=== PATIENT | female | born 1985 | race Hispanic/Latino ===

== ENCOUNTER 2023-06-29 05:47 | Inpatient (IN) | payer MEDICAID ==
[2023-06-26 11:58] LABS: Hematocrit 38.5 % (34.9-44.5); Hemoglobin 12.8 g/dL (12.0-15.5); Platelet Count 269 10x3/uL (150-450)
[2023-06-26 12:25] LABS: HBSAg Index 0.18 S/CO (0-0.99); Hep B Surf Ag Non-Reactive S/CO (NonReactive); Syphilis Antibody Nonreactive (Nonreactive); Syphilis Antibody Index 0.04 S/CO (<1.00 Non-Reactive)
[2023-06-29 06:19] VITALS: BMI 37.3
[2023-06-29] MEDS ORDERED: diphenhydrAMINE 50 MG/ML VIAL IVP PRN (06:51)
[2023-06-29] MEDS ORDERED: Promethazine HCl 25 MG SUPP PR PRN (06:51)
[2023-06-29] MEDS ORDERED: Ondansetron PF 4 MG/2 ML Vial IVP PRN ×2 (06:51→07:06)
[2023-06-29] MEDS ORDERED: Promethazine HCl 25 MG/ML VIAL IM PRN ×2 (06:51→07:06)
[2023-06-29] MEDS ORDERED: Ondansetron HCl/PF 4 MG/2 ML Vial IVP PRN (06:51)
[2023-06-29] MEDS ORDERED: Naloxone HCl 0.4 mg/ml Vial IV PRN (06:51)
[2023-06-29] MEDS ORDERED: Moisturizing Cream (Eucerin) 113 GM JAR TOP PRN (06:51)
[2023-06-29] MEDS ORDERED: Fentanyl 50 MCG/1 ML VIAL SLOW IVP PRN (06:51)
[2023-06-29] MEDS ORDERED: Naloxone HCl 0.4 mg/ml Vial IVP PRN ×2 (06:51)
[2023-06-29] MEDS ORDERED: Meperidine HCl/PF 25 MG/ML VIAL SLOW IVP PRN (06:51)
[2023-06-29] MEDS ORDERED: L&D-HYDROmorphone 0.5 MG/0.5 ML SYRINGE SLOW IVP PRN (06:51)
[2023-06-29] MEDS ORDERED: fentaNYL 50 mcg/mL 1 mL Vial ONE (06:56)
[2023-06-29] MEDS ORDERED: Morphine PF 10 MG/10 ML VIAL ONE (06:56)
[2023-06-29] MEDS ORDERED: Dexamethasone 4 mg/ml Vial ONE (06:58)
[2023-06-29] MEDS ORDERED: Phenylephrine 10 MG/ML VIAL ONE (06:58)
[2023-06-29] MEDS ORDERED: Ondansetron PF 4 MG/2 ML Vial ONE (06:58)
[2023-06-29] MEDS ORDERED: Ketorolac Tromethamine 30 MG/ML VIAL IVP SCH (07:00)
[2023-06-29] MEDS ORDERED: CEFAZOLIN 2 GM VIAL ONE (07:00)
[2023-06-29] MEDS ORDERED: Famotidine/PF 20 mg/2ml Vial ONE (07:00)
[2023-06-29] MEDS ORDERED: Communication Order-Pharmacy FS SCH (07:00)
[2023-06-29] MEDS ORDERED: Oxytocin 10 UNITS/ML VIAL ONE (07:04)
[2023-06-29] MEDS ORDERED: Sodium Chloride 0.9% 100 ML ONE (07:05)
[2023-06-29] MEDS ORDERED: hydrALAZINE 20 MG/ML VIAL SLOW IVP PRN ×2 (07:06→08:44)
[2023-06-29] MEDS ORDERED: Bicitra 30 ML UDCUP PO PRN (07:06)
[2023-06-29] MEDS ORDERED: Docusate 100 MG CAP PO PRN (07:06)
[2023-06-29] MEDS ORDERED: Tranexamic Acid 1,000 MG/10 ML VIAL IVP PRN (07:06)
[2023-06-29] MEDS ORDERED: Famotidine/PF 20 mg/2ml Vial SLOW IVP PRN (07:06)
[2023-06-29] MEDS ORDERED: Misoprostol 200 MCG TAB PR PRN (07:06)
[2023-06-29] MEDS ORDERED: Carboprost 250 MCG/ML AMP IM PRN (07:06)
[2023-06-29] MEDS ORDERED: Lactated Ringer's 1,000 ML IV SCH (07:15)
[2023-06-29] MEDS ORDERED: CEFAZOLIN 2 GM in Sodium Chloride 0.9% 100 ML IVPB SCH (07:15)
[2023-06-29] MEDS ORDERED: NS w/ Oxytocin 30 units 500 ML IV SCH (07:15)
[2023-06-29] MEDS ORDERED: Erythromycin Base 0.5% Oint 1 GM TUBE ONE (07:36)
[2023-06-29] MEDS ORDERED: Phytonadione Neonatal 1 MG/0.5 ML AMP ONE (07:37)
[2023-06-29] MEDS ORDERED: Boostrix 0.5 ML (Tdap) VIAL (>/=7 yrs of age) IM ONE (08:44)
[2023-06-29] MEDS ORDERED: diphenhydrAMINE 25 MG CAP PO PRN (08:44)
[2023-06-29] MEDS ORDERED: Acetaminophen 325 MG TAB PO PRN (08:44)
[2023-06-29] MEDS: Ketorolac Tromethamine 30 MG/ML VIAL IVP PRN ×3 (11:27→23:54)
[2023-06-29] MEDS ORDERED: NS w/ Oxytocin 30 units 500 ML ONE (11:32)
[2023-06-29] MEDS: Prenatal Vitamin 1 TAB PO SCH (19:17)
[2023-06-30 05:25] LABS: Hematocrit 31.2 % (34.9-44.5); Hemoglobin 10.2 g/dL (12.0-15.5); Mean Corpuscular HGB CONC 32.7 g/dL (32.0-36.0); Mean Corpuscular Hemoglobin 32.6 pg (27.0-33.0); Mean Corpuscular Volume 99.7 fl (81.6-98.3); Platelet Count 251 10x3/uL (150-450); RBC Distribution Width 13.8 % (11.5-14.5); Red Blood Cell (RBC) Count 3.13 10x6/uL (3.90-5.03); White Blood Cell (WBC) Count 11.5 10x3/uL (3.5-10.5)
[2023-06-30] MEDS ORDERED: Lactated Ringer's 1,000 ML IV SCH (07:30)
[2023-06-30] MEDS: HYDROcodone/Acetaminophen 5/325 mg Tablet PO PRN ×3 (08:17→20:32)
[2023-06-30] MEDS: Simethicone Chewable 80 MG TAB PO PRN (14:04)
[2023-06-30] MEDS: Prenatal Vitamin 1 TAB PO SCH (14:04)
[2023-06-30] MEDS: Ibuprofen 800 MG TAB PO SCH ×2 (14:04→20:31)
[2023-07-01] MEDS: HYDROcodone/Acetaminophen 5/325 mg Tablet PO PRN ×2 (01:09→20:18)
[2023-07-01] MEDS: Simethicone Chewable 80 MG TAB PO PRN (01:09)
[2023-07-01 04:21] LABS: Hematocrit 32.4 % (34.9-44.5); Hemoglobin 10.7 g/dL (12.0-15.5); Mean Corpuscular Hemoglobin 32.2 pg (27.0-33.0); Mean Corpuscular Volume 97.6 fl (81.6-98.3); Mean Platelet Volume 9.5 fl (7.4-10.4); Platelet Count 286 10x3/uL (150-450); Red Blood Cell (RBC) Count 3.32 10x6/uL (3.90-5.03); White Blood Cell (WBC) Count 10.5 10x3/uL (3.5-10.5)
[2023-07-01] MEDS: Ibuprofen 800 MG TAB PO SCH ×3 (04:58→21:46)
[2023-07-01] MEDS: Prenatal Vitamin 1 TAB PO SCH (08:29)
[2023-07-01] MEDS ORDERED: Docusate 100 MG CAP PO PRN (08:56)
[2023-07-01] MEDS ORDERED: Bisacodyl 10 MG SUPP PR PRN (13:47)
[2023-07-02] MEDS: HYDROcodone/Acetaminophen 5/325 mg Tablet PO PRN ×3 (02:05→15:15)
[2023-07-02] MEDS: Ibuprofen 800 MG TAB PO SCH ×2 (05:07→15:16)
[2023-07-02 07:50] VITALS: BP 129/74; TEMP 98
[2023-07-02] MEDS: Prenatal Vitamin 1 TAB PO SCH (08:47)
[2023-07-02] MEDS: Simethicone Chewable 80 MG TAB PO PRN ×2 (08:48→15:15)
== END 2023-07-02 19:05 | disposition home or self-care (01) | DRG 787 ==
LOC: CSHLD 05:47 → CSHPP 10:45
PROVIDERS: ADMIT Family Medicine; ATTEND Family Medicine
PROC: 10D00Z1 Extraction of Products of Conception, Low, Open Approach (ICD-10-PCS; principal; 2023-06-29)
DX: O34.211 Maternal care for low transverse scar from previous cesarean delivery (principal); N39.0 Urinary tract infection, site not specified; O23.03 Infections of kidney in pregnancy, third trimester; B96.1 Klebsiella pneumoniae [K. pneumoniae] as the cause of diseases classified elsewhere; O30.043 Twin pregnancy, dichorionic/diamniotic, third trimester; O40.3XX0 Polyhydramnios, third trimester, not applicable or unspecified; Z3A.38 38 weeks gestation of pregnancy; Z87.891 Personal history of nicotine dependence; Z37.2 Twins, both liveborn; Z79.82 Long term (current) use of aspirin; O32.1XX2 Maternal care for breech presentation, fetus 2; O99.893 Other specified diseases and conditions complicating puerperium; I95.9 Hypotension, unspecified
CPT/HCPCS: 36415; 51702; 85014; 85018; 85027; 85049; 86780; 86850; 86900; 86901; 87340; J1100; J1885; J2274; J2370; J2405; J2550; J2590; J3010; S0028